=== PATIENT | male | born 1945 | race Caucasian/White ===

== ENCOUNTER → 2021-09-22 13:41 | Outpatient (BNVA) | payer MEDICARE, BC, SELFPAY | PROVIDERS: PCP Legal Medicine; Referring Provider Family Medicine; Visit Provider Nurse Practitioner Adult Health | DX: G56.03 Carpal tunnel syndrome, bilateral upper limbs (principal) | CPT/HCPCS: 95909; 99203 ==

== ENCOUNTER 2021-12-02 10:44 | Outpatient (CLI) | payer MEDICARE, BC, SELFPAY ==
[2021-12-02 10:34] LABS: HCT 44.6 % (40.0-50.0); HGB 14.6 g/dL (13.5-17.5); MCH 31.1 pg (27.0-33.0); MCHC 32.7 % (32.0-36.0); MCV 95 fL (80-95); MPV 9.9 fL (8.0-11.0); Platelet Count 295 10^3/uL (130-400); RBC 4.69 10^6/uL (4.36-5.78); RDW 13.2 % (11.8-14.1); RDW-SD 45.6 fL; WBC 7.43 10^3/uL (4.4-10.8)
[2021-12-02 10:42] LABS: Anion Gap 4.3 mmol/L (3-11); BUN 22 mg/dL (7-18); CO2 30.7 mmol/L (21.0-32.0); CREATININE 0.9 mg/dL (0.70-1.30); Calcium 9.2 mg/dL (8.5-10.1); Chloride 103 mmol/L (98-107); Estimated GFR 89.07 (mL/min/1.73m2); Glucose 151 mg/dL (74-106); Potassium 4.6 mmol/L (3.5-5.1); Sodium 138 mmol/L (136-145)
== END 2021-12-02 10:45 | disposition home or self-care (01) ==
LOC: LBO 10:53
PROVIDERS: PCP Legal Medicine; Visit Provider Student in an Organized Health Care Education/Training Program
DX: G56.02 Carpal tunnel syndrome, left upper limb (principal); Z01.818 Encounter for other preprocedural examination
CPT/HCPCS: 36415; 80048; 85027

== ENCOUNTER 2022-01-04 06:12 | Day surgery (SDC) | payer MEDICARE, BC, SELFPAY ==
[2022-01-04 06:33] VITALS: BP 151/74; PULSE 54; RESP 20; TEMP 36.3; O2SAT 96
[2022-01-04] MEDS: Lactated Ringers 1,000 ML 80 ML IV (06:54)
--- NOTE | 2022-01-04 07:17 | ANES.PREOP_ITS ---
General Info Date of Service Date Performed: 01/04/22 Height: 5 ft 10 in Weight: 114 kg Body Mass Index (BMI): 36.0 Surgical Procedure: Operation Date: 01/04/22 07:55 Proposed Procedure Side Surgeon sanjiv TANNERR Altaf Bacon MD Meds Allergies and Home Medications Allergies Allergy/AdvReac Type Severity Reaction Status Date / Time No Known Allergies Allergy Verified 12/02/21 09:03 Home Medication Medication Instructions Recorded Actos 30 mg tablet (pioglitazone) 30 mg PO DAILY 10/09/16 Betsy Low Dose Aspirin 81 mg 81 mg PO DAILY 10/09/16 tablet,delayed release (aspirin) Cozaar 100 mg tablet (losartan) 100 mg PO DAILY 10/09/16 atorvastatin 40 mg tablet 40 mg PO DAILY 10/09/16 multivitamin 1 ea PO DAILY 10/09/16 omega-3 fatty acids-fish oil 300 1 ea PO DAILY 10/09/16 mg-1,000 mg capsule acetaminophen 325 mg capsule 650 mg PO ONCE PRN 07/18/21 (Tylenol) albuterol 90 mcg/actuation aerosol mcg inhalation PRN 07/18/21 inhaler atenolol 25 mg tablet 25 mg PO DAILY 07/18/21 blood sugar diagnostic (True 07/18/21 Metrix Glucose Test Strip) blood-glucose meter (True Metrix 07/18/21 Air Glucose Meter kit) famotidine 40 mg disintegrating 40 mg PO DAILY 07/18/21 tablet furosemide 20 mg tablet (Lasix) 30 mg PO DAILY 07/18/21 insulin syr/ndl U100 half chris 0.3 07/18/21 mL 31 gauge x 5/16 (BD Insulin Syringe Ultra-Fine (half unit)) Flomax 0.4 mg capsule (tamsulosin) 0.8 mg PO DAILY 09/22/21 Lantus U-100 Insulin 100 unit/mL 52 unit subcut BID 09/22/21 subcutaneous solution (insulin glargine) lansoprazole 30 mg capsule,delayed 30 mg PO .COMPLEX 09/22/21 release levothyroxine 150 mcg tablet 175 mcg PO DAILY 09/22/21 magnesium oxide 500 mg capsule 1,500 mg PO DAILY 09/22/21 metformin 1,000 mg tablet 1,000 mg PO BID 09/22/21 pioglitazone 30 mg tablet 30 mg PO DAILY 09/22/21 dapagliflozin 10 mg tablet 10 mg PO QAM 01/03/22 hydrocodone 5 mg-acetaminophen 325 1 tab PO Q6H PRN #5 tabs 01/04/22 mg tablet ibuprofen 600 mg tablet 600 mg PO TID #21 tabs 01/04/22 Current Visit Medications: Current Medications Generic Name Dose Route Start Last Admin Trade Name Freq PRN Reason Stop Dose Admin Ringer's Solution 1,000 mls @ 80 mls/hr 01/04/22 06:00 01/04/22 06:54 IV 02/02/22 23:59 80 mls/hr INFUSION MERCEDES Administration Cefazolin Sodium 3,000 mg/ 100 mls @ 200 mls/hr 01/04/22 06:00 Sodium Chloride IVPB 01/04/22 23:59 PREOP MERCEDES IV Miscellaneous Supplies 1 each 01/04/22 06:00 Iv Access IV 02/02/22 23:59 DIRECTED MERCEDES Sodium Chloride 0 ml 01/04/22 06:00 Normal Saline Flush 10 Ml Syr IV 02/02/22 23:59 PRN PRN Sodium Chloride 0 ml 01/04/22 06:00 Normal Saline 10 Ml Vial IJ 02/02/22 23:59 DIRECTED PRN Sterile Water 0 ml 01/04/22 06:00 Water,Injection,Sterile 10 Ml Vial IJ 02/02/22 23:59 DIRECTED PRN PFSH Active Problems Active Problems: Problem Status Onset Code Right carpal tunnel syndrome G56.01 Left carpal tunnel syndrome G56.02 Sensorineural hearing loss, unilateral 11/30/16 H90.5 Sensorineural hearing loss, bilateral 11/30/16 H90.3 Medical History Medical History AAA (abdominal aortic aneurysm) Asthma BPH (benign prostatic hyperplasia) Change in voice Chronic cough Collagenous colitis COPD (chronic obstructive pulmonary disease) Diabetes Diastolic heart failure Diverticular disease Erectile dysfunction Essential hypertension GERD (gastroesophageal reflux disease) Hand numbness History of ASCVD History of tobacco use Hx of thyroid cancer Hyperlipidemia Hypertension Hypocalcemia Hypomagnesemia Hypothyroidism Intermittent diarrhea Neoplasm of unspecified behavior of bone, soft tissue, and skin Obesity Obstructive sleep apnea Odynophagia Pain, joint, knee, right Peripheral edema Postoperative primary hypothyroidism Presbycusis, bilateral Right thyroid nodule Skin lesion Sleep apnea Thyroid cancer Type 2 diabetes mellitus Surgical History Surgical History Colonoscopy prominent lymphoid aggregates History of thyroidectomy History of tonsillectomy sigmoidectomy Tobacco Smoking/Tobacco Use Status: Former Tobacco Use Alcohol Alcohol Intake: never Substance Use Substance use: Never Substance use type: does not use Vital Signs and Lab Results Vital Signs Most Recent Vital Signs in EMR: Most Recent Vital Signs Temp Pulse Resp BP Pulse Ox 36.3 C L 54 L 20 151/74 H 96 01/04/22 06:33 01/04/22 06:33 01/04/22 06:33 01/04/22 06:33 01/04/22 06:33 Point of Care Results Point of Care Results: Finger Stick Blood Glucose 103 01/04/22 06:55 Lab Results Blood Type / Crossmatch: No Data to Display Complete Blood Count: No Data to Display Complete Metabolic Panel: No Data to Display Liver Function Panel: No Data to Display Coagulation Panel: No Data to Display Cardiac Panel: No Data to Display Arterial Blood Gas: No Data to Display Venous Blood Gas: No Data to Display Pancreas Panel: No Data to Display Thyroid Panel: No Data to Display Infectious Disease: No Data to Display Blood Cultures: No Data to Display Toxicology Panel: No Data to Display Imaging and Studies Imaging and Studies Study information below may be from another EMR and interpreted by another provider. Please see original notes in EMR for more complete details. [place] [facility] [place] 56%, Mild MR, Aorta 3.1cm, Other valves normal. Normal PA pressures. Anesthesia Assessment and Plan Anesthesia History Personal History: No History of Anesthesia Complications Family History: No Family History of Anesthesia Complications Exercise Tolerance Exercise Tolerance: Metabolic Equivalents>4 Pertinent Negatives Pertinent Negatives: No Symptoms of GERD Cardiac & Pulmonary Exam Cardiac Exam: Normal S1/S2 Heart Sounds Pulmonary Exam: Clear Bilateral Breath Sounds Implantable Cardiac Device Does patient have a Pacemaker or an ICD?: No Airway Exam Known Difficult Airway: No Mallampati Class: 1 Mouth Opening: Normal (> 3cm) Thyromental Distance: Greater than 3 cm Neck Range of Motion: Full ROM Neck Circumference: Normal Teeth Condition: Normal Dentition ASA Classification ASA Score: ASA 3 Emergency Case?: No NPO Status NPO Status: NPO Clears >2 hours, Solids >8 hours Anesthesia Plan Resuscitation Status: Full Code Anesthesia Technique: General Anesthesia Airway Planned: Natural Airway Monitors Used: Standard Monitors Preoperative Comments:: Pt. denies any history of AAA, he has never been spoken to about this. We are researching to see if there is a scan at [facility] to confirm this. [facility] [place] shows no thoracic aneurysm.
--- NOTE | 2022-01-04 07:23 | HPE_ITS ---
Assessment and Plan Assessment and plan (1) Left carpal tunnel syndrome: Status: Acute Assessment and plan: Henrry is a 76-year-old who has bilateral carpal tunnel syndrome, symptomatic on the left side. He is here for his left carpal tunnel release. Please see the previous office note for complete detailed history. He does have some active medical issues although they have had no acute changes. We will proceed today for a left carpal tunnel release. I reviewed the risk of the procedure to include bleeding, infection, pain, stiffness, continued symptoms, continued numbness, need for repeat procedures. Despite these risk, he elects to proceed. History of Present Illness History of Present Illness Chief Complaint: Left Carpal Tunnel Syndrome Narrative: Henrry is a 76-year-old who presents today for carpal tunnel release. He has nerve reduction study proven carpal tunnel syndrome of the left side which is kasie thersome. Please see the office note for complete detailed history. He does have some ongoing medical issues although they are stable. He has a chronic cough which has not changed. It is not affected by his diet or by time of day. He does have some continued reflux symptoms for which she takes a PPI. He has not had his upper endoscopy as recommended and he has not seen ENT about the cough. However, this is largely unchanged. He does have diabetes with a most recent A1c of 7.2. He had CBC and BMP performed here at the hospital which was relatively normal for his age. He had a recent stress test in June which was negative for any ischemic disease although he still has some shortness of breath with strenuous activity. He denies active chest pain. He denies any acute cough. He denies fevers or chills. Interestingly, he has been having worsening right leg pain. He has had episodes of right knee pain in the past. These usually pass within a few days but this episode has taken longer. He does feel that the right knee is now better than it was a few days ago with some swelling but no redness. He is able to ambulate without assistive device. However, he is having some increasing right groin pain. This is a relatively newer symptom. Review of Systems All systems reviewed & are unremarkable except as noted in HPI and below PFSH All Active Problems Right carpal tunnel syndrome (Acute) Left carpal tunnel syndrome (Acute) Sensorineural hearing loss, unilateral (Acute 11/30/16) Sensorineural hearing loss, bilateral (Acute 11/30/16) Medical History AAA (abdominal aortic aneurysm) Asthma BPH (benign prostatic hyperplasia) Change in voice Chronic cough Collagenous colitis COPD (chronic obstructive pulmonary disease) Diabetes Diastolic heart failure Diverticular disease Erectile dysfunction Essential hypertension GERD (gastroesophageal reflux disease) Hand numbness History of ASCVD History of tobacco use Hx of thyroid cancer Hyperlipidemia Hypertension Hypocalcemia Hypomagnesemia Hypothyroidism Intermittent diarrhea Neoplasm of unspecified behavior of bone, soft tissue, and skin Obesity Obstructive sleep apnea Odynophagia Pain, joint, knee, right Peripheral edema Postoperative primary hypothyroidism Presbycusis, bilateral Right thyroid nodule Skin lesion Sleep apnea Thyroid cancer Type 2 diabetes mellitus Surgical History Colonoscopy prominent lymphoid aggregates History of thyroidectomy History of tonsillectomy sigmoidectomy Family History Father Diabetes Skin cancer CAD (coronary artery disease) Mother Diabetes H/O angioplasty Sister Diabetes Sister History of prediabetes Sister Alcohol use disorder COPD (chronic obstructive pulmonary disease) Social History Smoking/Tobacco Use Status: Former Tobacco Use Smoking risk assessment performed?: Yes Alcohol Intake: never Drug use: Never Substance use type: does not use Do you feel safe at home: Yes Do you feel safe in your relationship?: Yes Meds Allergies and Home Medications Allergies Allergy/AdvReac Type Severity Reaction Status Date / Time No Known Allergies Allergy Verified 12/02/21 09:03 Home Medications Medication Instructions Recorded Confirmed Type Actos 30 mg tablet (pioglitazone) 30 mg PO DAILY 10/09/16 01/04/22 History Betsy Low Dose Aspirin 81 mg 81 mg PO DAILY 10/09/16 01/04/22 History tablet,delayed release (aspirin) Cozaar 100 mg tablet (losartan) 100 mg PO DAILY 10/09/16 01/04/22 History atorvastatin 40 mg tablet 40 mg PO DAILY 10/09/16 01/04/22 History multivitamin 1 ea PO DAILY 10/09/16 01/04/22 History omega-3 fatty acids-fish oil 300 1 ea PO DAILY 10/09/16 01/04/22 History mg-1,000 mg capsule acetaminophen 325 mg capsule 650 mg PO ONCE PRN 07/18/21 01/04/22 History (Tylenol) albuterol 90 mcg/actuation aerosol mcg inhalation PRN 07/18/21 12/02/21 History inhaler atenolol 25 mg tablet 25 mg PO DAILY 07/18/21 01/04/22 History blood sugar diagnostic (True 07/18/21 12/02/21 History Metrix Glucose Test Strip) blood-glucose meter (True Metrix 07/18/21 12/02/21 History Air Glucose Meter kit) famotidine 40 mg disintegrating 40 mg PO DAILY 07/18/21 01/04/22 History tablet furosemide 20 mg tablet (Lasix) 30 mg PO DAILY 07/18/21 01/04/22 History insulin syr/ndl U100 half chris 0.3 07/18/21 12/02/21 History mL 31 gauge x 5/16 (BD Insulin Syringe Ultra-Fine (half unit)) Flomax 0.4 mg capsule (tamsulosin) 0.8 mg PO DAILY 09/22/21 01/04/22 History Lantus U-100 Insulin 100 unit/mL 52 unit subcut BID 09/22/21 01/04/22 History subcutaneous solution (insulin glargine) lansoprazole 30 mg capsule,delayed 30 mg PO .COMPLEX 09/22/21 01/04/22 History release levothyroxine 150 mcg tablet 175 mcg PO DAILY 09/22/21 01/04/22 History magnesium oxide 500 mg capsule 1,500 mg PO DAILY 09/22/21 01/04/22 History metformin 1,000 mg tablet 1,000 mg PO BID 09/22/21 01/04/22 History pioglitazone 30 mg tablet 30 mg PO DAILY 09/22/21 12/02/21 History dapagliflozin 10 mg tablet 10 mg PO QAM 01/03/22 01/04/22 History hydrocodone 5 mg-acetaminophen 325 1 tab PO Q6H PRN #5 tabs 01/04/22 Rx mg tablet ibuprofen 600 mg tablet 600 mg PO TID #21 tabs 01/04/22 Rx Exam Const General: cooperative, healthy appearing, comfortable and no acute distress Resp Auscultation: clear to auscultation bilaterally Cardio Rate: regular rate Rhythm: regular rhythm Extrem Other: Evaluation of the left wrist shows no masses or lesions. He has a positive Navi's and Phalen's test. Decree sensation in the median nerve distribution. Evaluation of the right leg shows an effusion about the right knee. No overlying signs of infection. Passive range of motion does not increase pain. He does have pain along the medial joint line, slightly worse anteriorly and posteriorly. Some crepitus over the medial joint line what appears to be some palpable osteophytes. Internal and external rotation of the right leg causes increasing right groin pain which is also notable for obligate external rotation with flexion of the right hip. Results Last Vital Signs Temp 36.3 C L 01/04/22 06:33 Pulse 54 L 01/04/22 06:33 Resp 20 01/04/22 06:33 BP 151/74 H 01/04/22 06:33 Pulse Ox 96 01/04/22 06:33
--- NOTE | 2022-01-04 07:27 | W.PM.DSUDISC ---
Date of service: 01/04/22 Time of Service: 08:52 Discharge Plan Disposition Patient Disposition: HOME Condition: Good Discharge Details Reason For Visit: Left ECTR Attending Provider: Altaf Bacon Primary Care Provider: Alycia Waller Home Meds and New Rx's Prescriptions: New hydrocodone-acetaminophen 5-325 mg tablet 1 tab PO Q6H PRNQty: 5 0RF ibuprofen 600 mg tablet 600 mg PO TID Qty: 21 0RF Continued atorvastatin 40 MG tablet 40 mg PO DAILY aspirin [Betsy Low Dose Aspirin] 81 MG tablet,delayed release (DR/EC) 81 mg PO DAILY pioglitazone [Actos] 30 MG tablet 30 mg PO DAILY losartan [Cozaar] 100 MG tablet 100 mg PO DAILY multivitamin 1 EACH capsule 1 ea PO DAILY omega-3 fatty acids-fish oil 1 EACH capsule 1 ea PO DAILY furosemide [Lasix] 20 mg tablet 30 mg PO DAILY (DME) True Metrix Glucose Test Strip Strip See Rx Instructions .Route Rx Instructions: As directed atenolol 25 mg tablet 25 mg PO DAILY (DME) blood-glucose meter [True Metrix Air Glucose Meter] Kit See Rx Instructions .Route Rx Instructions: As directed (DME) BD Insulin Syringe (half unit) 0.3 mL 31 gauge x 5/16 syringe See Rx Instructions .Route Rx Instructions: As directed acetaminophen [Tylenol] 325 mg capsule 650 mg PO ONCE PRN albuterol 90 mcg/actuation aerosol inhalation PRN famotidine 40 mg tablet,disintegrating 40 mg PO DAILY pioglitazone 30 mg tablet 30 mg PO DAILY tamsulosin [Flomax] 0.4 mg capsule 0.8 mg PO DAILY lansoprazole 30 mg capsule,delayed release(DR/EC) 30 mg PO .COMPLEX Rx Instructions: 30 mg orally every other day; insulin glargine [Lantus U-100 Insulin] 100 unit/mL solution 52 unit Sub-Q BID levothyroxine 150 mcg tablet 175 mcg PO DAILY magnesium oxide 500 mg capsule 1,500 mg PO DAILY metformin 1,000 mg tablet 1,000 mg PO BID dapagliflozin 10 mg Tablet 10 mg PO QAM Discharge Instructions Stand Alone Forms: Arleen Moreira Tunnel Release Referrals: Altaf Bacon MD [ [facility] STAFF PHYSICIAN] - Activity:: Activity as Tolerated Remove Dressings/Wound Care:: 72 hours Shower/Bathe:: 72 hours Diet:: As Tolerated Discharge Orders Discharge Orders: Discharge Order (Routine); Ordered 01/04/22 Ordered By: Cat Sultana DS: Diagnosis Discharge Diagnosis (1) Left carpal tunnel syndrome: Status: Acute
[2022-01-04 07:46] VITALS: BMI 36.0
[2022-01-04] MEDS: ceFAZolin 3,000 MG in Normal Saline 100 ML 200 MG IVPB (08:04)
[2022-01-04 08:28] VITALS: BP 107/61; PULSE 80; RESP 18; TEMP 36.6; O2SAT 94
--- NOTE | 2022-01-04 08:34 | W.ANESPOSTOP ---
Postoperative Evaluation Date, Time and Location Date Performed: 01/04/22 Time Performed: 08:34 Patient Location: Day Surgery Unit Vital Signs Most Recent Imported Vital Signs: Most Recent Vital Signs Temp Pulse Resp BP Pulse Ox 36.6 C 80 18 107/61 94 01/04/22 08:28 01/04/22 08:28 01/04/22 08:28 01/04/22 08:28 01/04/22 08:28 Pain Score Most Recent Pain Score: Most Recent Pain Score Pain Level 0 01/04/22 08:28 Assessment Mental Status: Awake (Alert & Oriented to Patient Baseline) Airway and Respiratory Function: Patent airway with normal (patient baseline) respiratory exam Cardiovascular Function: Hemodynamically Stable Hydration Status: Adequately Hydrated Nausea & Vomiting: No Nausea or Vomiting Pain: Pt. Denies Any Pain Peripheral Nerve Block: Patient did not receive a nerve block Postoperative Comments:: Records from [facility] obtained, no Abdominal CT. Recommended to pt. he follow up with his PCP to discuss if the AAA exists.
[2022-01-04 08:54] VITALS: BP 122/63; PULSE 58; RESP 18; TEMP 36.5; O2SAT 92
--- NOTE | 2022-01-06 06:39 | W.PM.OP ---
Date of service: 01/04/22 Time of Service: 08:00 Operative Note Operative Note DATE OF PROCEDURE: 01/04/22 PRE-OP DIAGNOSIS: Left Carpal Tunnel Syndrome POST-OP DIAGNOSIS: same PROCEDURE: Left Endoscopic Carpal Tunnel Release SURGEON: Altaf Bacon ANESTHESIA TYPE: General:No Airway Refer to Anesthesia Record ESTIMATED BLOOD LOSS: 0 PATHOLOGY: none sent TOURNIQUET TIME: 6 COMPLICATIONS: None Patient was transported to: same day Patient's condition: stable Indications: I have seen Henrry in clinic for symptoms of carpal tunnel syndrome. The numbness, tingling, and pain limited function. Clinical exam findings with nerve conduction tests confirmed the diagnosis of carpal tunnel syndrome. Nonoperative measures such as bracing, time, activity modifications had been tried but disability and pain persisted. I discussed carpal tunnel release with the patient. I reviewed the risks of the procedure to include, but not limited to, bleeding, infection, pain, stiffness, incomplete release, damage to nerves or vessels, persistent numbness, recurrence. Despite these risks, the patient elected to proceed. Findings: There was tightened carpal tunnel. This was dilated and released successfully with the endoscopic with increased space within the tunnel. The antebrachial fascia was released proximally freeing the median nerve at the wrist. Procedure Description: Henrry was greeted in the preoperative holding area where the correct side was identified and marked. The consent was reviewed with the patient and signed. The history and physical was updated. All questions were answered. He was taken back to the operating room. The patient was placed into the supine position on the operating room table with the left arm on an arm board. A nonsterile tourniquet was placed high onto the arm. All bony prominences were well padded. Prophylactic antibiotics in the form of Cefazolin were administered. The left arm was then prepped with Chloraprep and draped in a standard fashion with stockinette and extremity drape. A timeout to confirm correct identity, side and site, procedure, allergies, anesthesia, and medical concerns was performed. The surgical site was marked in the volar wrist creases in line with the radial border of the fourth ray. This area was anesthetized with approximately 6cc of 1% Lidocaine. The limb was then exsanguinated with an Esmarch. The skin was incised with a 15 blade, approximately 1cm. The skin only was cut and the deeper tissue was dissected bluntly with a tenotomy scissor, avoiding passing nerve and venous structures. The fascia was penetrated and opened bluntly. A two-prong skin hook was placed under this proximal fascial edge. A series of hamate finders were used to identify and dilate the carpal tunnel. Synovial elevator was used to free synovial attachments to the underside of the transverse carpal ligament. My thumb was kept in the palm to chris the distal extent of the carpal tunnel and correctly position the hand. The [employer] endoscope was inserted without difficulty and without resistance. Excellent visualization showed horizontally running fibers of the transverse carpal ligament (TCL). The distal extent of the TCL was visualized and the end of the scope palpated with the thumb. The blade was elevated and withdrawn from distal to proximal. The TCL was split into two flaps. The endoscope was reinserted to confirm complete release and any remnant ligament was incised. The scope was withdrawn and the proximal aspect of the carpal tunnel was grossly inspected and appeared release with the median nerve visible. The antebrachial fascia at the level of the wrist was then freed from the overlying skin and then the underlying median nerve with blunt dissection. This was transected longitudinally for about 3cm proximal to the wrist incision. The wound was then irrigated with easy flow of irrigant distally and proximally. The incision was closed with a single 4-0 Nylon suture. The wound was dressed with Xeroform, Gauze, Kerlix and Sinan. The tourniquet was deflated with the initial dressing and held with some pressure. Blood flow returned easily to all digits with capillary refill less than 2 seconds. The patient tolerated the procedure well and was returned to the Same Day Surgery area in a stable condition suffering no known complication.
== END 2022-01-04 09:20 | disposition home or self-care (01) ==
PROVIDERS: PCP Family Medicine; Visit Provider Student in an Organized Health Care Education/Training Program
PROC: 01N54ZZ Release Median Nerve, Percutaneous Endoscopic Approach (ICD-10-PCS; CPT 29848; principal; 2022-01-04 07:45)
DX: G56.02 Carpal tunnel syndrome, left upper limb (principal)
CPT/HCPCS: 29848; J0690; J1885; J2405

== ENCOUNTER → 2022-01-12 10:34 | Outpatient (BNVA) | payer MEDICARE, BC, SELFPAY | PROVIDERS: PCP Family Medicine; Referring Provider Legal Medicine; Visit Provider Student in an Organized Health Care Education/Training Program | DX: Z47.89 Encounter for other orthopedic aftercare (principal); G56.02 Carpal tunnel syndrome, left upper limb ==

== ENCOUNTER → 2023-01-19 10:07 | Outpatient (BNVA) | payer MEDICARE, BC, SELFPAY | PROVIDERS: PCP Family Medicine; Referring Provider Family Medicine; Visit Provider Student in an Organized Health Care Education/Training Program | DX: M65.331 Trigger finger, right middle finger (principal); M72.0 Palmar fascial fibromatosis [Dupuytren] | CPT/HCPCS: 99213 ==

== ENCOUNTER 2023-02-14 13:08 | Day surgery (SDC) | payer MEDICARE, BC, SELFPAY ==
--- NOTE | 2023-02-14 13:12 | PDOC.DSDIS_ITS ---
Date of service: 02/14/23 Time of Service: 13:12 Discharge Plan Disposition Patient Disposition: Home Condition: Good Discharge Details Reason For Visit: RMF Trigger Release Attending Provider: Altaf Bacon Primary Care Provider: Alycia Waller Home Meds and New Rx's Prescriptions: New acetaminophen 500 mg tablet 1,000 mg PO TID Qty: 90 0RF ibuprofen 600 mg tablet 600 mg PO TID PRN (Reason: pain) Qty: 90 0RF Continued insulin glargine [Lantus U-100 Insulin] 100 unit/mL solution 30 unit Sub-Q BID Ozempic 0.25 mg or 0.5 mg (2 mg/3 mL) pen injector 0.5 mg subcut QWEEK Rx Instructions: for 4 weeks atorvastatin 40 MG tablet 40 mg PO DAILY aspirin [Betsy Low Dose Aspirin] 81 MG tablet,delayed release (DR/EC) 81 mg PO DAILY losartan [Cozaar] 100 MG tablet 100 mg PO DAILY multivitamin 1 EACH capsule 1 ea PO DAILY omega-3 fatty acids-fish oil 1 EACH capsule 1 ea PO DAILY furosemide [Lasix] 20 mg tablet 30 mg PO DAILY (DME) True Metrix Glucose Test Strip Strip See Rx Instructions .Route Rx Instructions: As directed atenolol 25 mg tablet 25 mg PO DAILY (DME) blood-glucose meter [True Metrix Air Glucose Meter] Kit See Rx Instructions .Route Rx Instructions: As directed (DME) BD Insulin Syringe (half unit) 0.3 mL 31 gauge x 5/16 syringe See Rx Instructions .Route Rx Instructions: As directed albuterol 90 mcg/actuation aerosol inhalation PRN tamsulosin [Flomax] 0.4 mg capsule 0.8 mg PO DAILY lansoprazole 30 mg capsule,delayed release(DR/EC) 30 mg PO .COMPLEX Rx Instructions: 30 mg orally every other day; levothyroxine 150 mcg tablet 175 mcg PO DAILY metformin 1,000 mg tablet 1,000 mg PO BID magnesium oxide 500 mg capsule 500 mg PO TID tamsulosin [Flomax] 0.4 mg capsule 0.4 mg PO BID dapagliflozin propanediol 10 mg Tablet 10 mg PO QAM ibuprofen 600 mg tablet 600 mg PO TID Qty: 21 0RF Discontinued acetaminophen [Tylenol] 325 mg capsule 650 mg PO ONCE PRN Discharge Instructions Stand Alone Forms: Arleen Mccullough Finger Release Referrals: Altaf Bacon MD [ [facility] STAFF PHYSICIAN] - Activity:: Activity as Tolerated Remove Dressings/Wound Care:: 48 hours Shower/Bathe:: 48 hours Diet:: As Tolerated Discharge Orders Discharge Orders: Discharge Order (Routine); Ordered 02/14/23 Ordered By: Enrrique Johnson DS: Diagnosis Discharge Diagnosis (1) Trigger finger, right middle finger: Status: Acute
[2023-02-14 13:13] VITALS: BP 124/57; PULSE 72; RESP 16; TEMP 36.2; O2SAT 96
[2023-02-14] MEDS: Sodium Bicarbonate 50 MEQ/50 ML VIAL (14:36)
[2023-02-14] MEDS: Lidocaine 1.5 % Pres-Free W/EPI 1/200,000 30 ML VIAL (14:37)
[2023-02-14 14:51] VITALS: BP 109/55; PULSE 64; RESP 96; TEMP 36.4; O2SAT 95
--- NOTE | 2023-02-14 15:24 | ROE_ITS ---
Date of service: 02/14/23 Time of Service: 14:45 Operative Note Operative Note DATE OF PROCEDURE: 02/14/23 PRE-OP DIAGNOSIS: Right Middle Finger Trigger Finger POST-OP DIAGNOSIS: same PROCEDURE: Trigger Finger Release - Right Middle Finger SURGEON: Altaf Bacon ANESTHESIA TYPE: Local By Surgeon Refer to Anesthesia Record PATHOLOGY: none sent COMPLICATIONS: None Patient was transported to: same day Patient's condition: stable Indications: I have seen Henrry in clinic for symptoms of a trigger finger. The catching, clicking, locking, and pain limited function. The diagnosis of trigger finger was evident. The symptoms had not responded to conservative measures. I discussed trigger finger release with the patient. I reviewed the risks of the procedure to include, but not limited to, bleeding, infection, pain, stiffness, incomplete release, damage to nerves or vessels, continued catching, recurrence. Despite these risks, the patient elected to proceed. Findings: There was a tightened A1 carol which was released. The flexor tendons were inspected and the patient was able to move the finger without any catching, clicking, or locking. There was also a palmar fascial nodule overlying the A1 carol which was resected. Procedure Description: Henrry was greeted in the preoperative holding area where the correct side was identified and marked. The consent was reviewed with the patient and signed. All questions were answered. He was taken back to the operating room. The patient was placed into the supine position on the operating room table with the RIGHT arm on an arm board. All bony prominences were well padded. No prophylactic antibiotics were administered since this was a clean, elective hand surgical case. The RIGHT arm was then prepped with Chloraprep and draped in a standard fashion with stockinette and extremity drape. A timeout to confirm correct identity, side and site, procedure, allergies, anesthesia, and medical concerns was performed. The surgical site was marked as a longitudinal incision directly over the A1 carol of the involved digit. This was confirmed with palpation during finger flexion. This area, overlying the metacarpal head, was then anesthetized with 1% Lidocaine. The patient tolerated this well and once the anesthetic had setup, the procedure began. A longitudinal incision was made through skin only, approximately 1.5cm. The deep tissues were dissected bluntly. There was a dense palmar fascial nodule overlying the A1 carol and this was identififed and resected from the overlying skin and deper structures. The soft tissues were then retracted. Once the A1 carol and flexor tendons were identified the soft tissue including neurovascular structures were retracted medially and laterally. There were no crossing structures over the A1 carol. The proximal edge of the carol was identified and the carol was incised with tenotomy scissors. There was a release of the tendons once this was fully released. The tendons were then removed from the wound and inspected. Excess synovium was resected. The tendons were then returned and the patient was asked to move the finger into deep flexion and back to extension. There was no recreation of the pre- operative symptoms. The hand was then once more inspected for any A0 carol or area of possible constriction. The wound was then irrigated and the skin was closed with a 4-0 Nylon. This was dressed with gauze and a Conform dressing. The patient tolerated the procedure well and was returned to the Same Day Surgery area in a stable condition suffering no known complication.
== END 2023-02-14 15:08 | disposition home or self-care (01) ==
PROVIDERS: PCP Family Medicine; Visit Provider Student in an Organized Health Care Education/Training Program
PROC: (CPT 26055; principal; 2023-02-14 14:00)
DX: M65.331 Trigger finger, right middle finger (principal)
CPT/HCPCS: 26055

== ENCOUNTER → 2023-02-23 10:00 | Outpatient (BNVA) | payer MEDICARE, BC, SELFPAY | PROVIDERS: PCP Family Medicine; Referring Provider Family Medicine | DX: Z47.89 Encounter for other orthopedic aftercare (principal); M25.641 Stiffness of right hand, not elsewhere classified ==